=== PATIENT | male | born 1975 | race Caucasian/White ===

== ENCOUNTER 2022-05-11 21:48 | Emergency (ER) | payer MEDICARE, OTHER ==
[~2022-05-11] VITALS: Ht 182.9 cm; Wt 104.3 kg
--- NOTE | 2022-05-11 22:30 | NUR ---
NELLIE FROM [facility] FOR SWOLLEN SCROTUM FOR 1-2 WEEKS. PT AWAKE AND ALERT BREATHING UNLABORED. CHANGED INTO GOWN AND SCROTUM SWELLING NOTED. WAS AT [facility] FOR EVAL. V/S WNL.
--- NOTE | 2022-05-11 22:36 | NUR ---
URINE COLLECTED AND SENT TO LAB
--- NOTE | 2022-05-11 22:55 | NUR ---
FREIGHT CALLER AT BEDSIDE
[2022-05-12 00:04] LABS: BILIRUBIN,URINE NEGATIVE (NEGATIVE); COLOR,URINE YELLOW (YELLOW); LEUKOCYTE ESTERASE ,URINE NEGATIVE (NEGATIVE); NITRITE, URINE NEGATIVE (NEGATIVE); PROTEIN,URINE NEGATIVE (NEGATIVE); UGLUCOSE NEGATIVE (NEGATIVE); UROBILINOGEN,URINE 0.2 EU/dL (0.2)
[2022-05-12] MEDS ORDERED: LEVOFLOXACIN (250MG) 250 MG TABLET PO SCH (01:30)
[2022-05-12] MEDS ORDERED: LEVO500T90 PO (01:31)
[2022-05-12] MEDS ORDERED: LEVOFLOXACIN (500MG) 500 MG TABLET ONE (01:35)
--- NOTE | 2022-05-12 01:44 | NUR ---
REPORT GIVEN TO LIZET FOR TRANSPORT BACK TO [facility]
--- NOTE | 2022-05-12 01:45 | NUR ---
[facility] CALLED FOR BLS GOING BACK TO [facility] PER MERI - JACKELIN 30 MIN
--- NOTE | 2022-05-12 02:17 | NUR ---
PT PICKED UP BY [facility] FOR TRANSPORT TO ASSISTED LIVING IN STABLE CONDITION. BEDSIDE REPORT PROVIDED TO PRINT AND PATTERN DESIGNER AND PT CHART AND PRESCRIPTION PROVIDED TO PRINT AND PATTERN DESIGNER.
[2022-05-12 02:18] VITALS: BP 132/65
== END 2022-05-12 02:18 | disposition home or self-care (01) ==
LOC: ER 21:50
DX: N45.1 Epididymitis (principal); N43.3 Hydrocele, unspecified; E03.9 Hypothyroidism, unspecified; Z79.899 Other long term (current) drug therapy
CPT/HCPCS: 76870-TC